=== PATIENT | female | born 1940 | race Two or more races ===

== ENCOUNTER 2017-05-19 13:25 | Outpatient (CLI) | payer OTHER ==
[~2017-05-19 13:25] MED LIST: CIPROFLOXACIN750 MG PO; CLONAZEPAM1 MG PO; COZAAR100 MG PO; CRESTOR10 MG PO; DOCUSATE SODIU100 MG PO; GABAPENTIN800 MG PO; NEURONTIN800 MG PO; PERCOCET 5-3251 EACH PO; RESTORIL PO; SINGULAIR10 MG PO
== END 2017-05-19 13:31 | disposition home or self-care (01) ==
LOC: RAD 13:25
DX: M51.36 Other intervertebral disc degeneration, lumbar region (principal); M43.10 Spondylolisthesis, site unspecified; Z98.1 Arthrodesis status

== ENCOUNTER 2017-11-13 13:10 | Outpatient (CLI) | payer OTHER | END 2017-11-13 13:27 | disposition home or self-care (01) | LOC: RAD 13:10 | DX: M43.10 Spondylolisthesis, site unspecified (principal); Z98.1 Arthrodesis status ==